=== PATIENT | female | born 1945 | race Caucasian/White ===

== ENCOUNTER 2020-08-22 17:52 | Emergency (ER) | payer MEDICARE ==
[~2020-08-22] VITALS: Ht 154.9 cm; Wt 86.8 kg
[2020-08-22 17:57] VITALS: BP 149/62
--- NOTE | 2020-08-22 18:10 | NUR ---
Jyoti rojas in [facility] - 08/22/20 at 1848 by IZAIAH PATIENT AMBULATED TO BED
--- NOTE | 2020-08-22 18:10 | NUR ---
PATIENT FAZAL ALS TO ER BED 06
--- NOTE | 2020-08-22 18:16 | NUR ---
75 Y/O BIBA FROM HOME FOR SUDDEN ONSET OF CHEST PAIN THAT BEGAN ABOUT 1 HOUR AGO. PATIENT TOOK 325MG CHEWABLE ASA AND FEELS LIKE IT HAS DECREASED PAIN. INITIAL PAIN WAS 8/10 CHEST PAIN AND DECREASED TO 2/10, RADIATING TO BACK. AAOX4. PT STATES SHE HAS HX OF ARRYTHMIA. VSS.
[2020-08-22 18:19] LABS: BASOPHILS # (AUTO) 0.1 K/uL (0.00-0.22); BASOPHILS % (AUTO) 0.9 % (0.0-2.0); EOSINOPHILS # (AUTO) 0.2 K/uL (0-0.4); EOSINOPHILS % (AUTO) 2.6 % (0.0-4.0); HEMATOCRIT 39.5 % (36-48); HEMOGLOBIN 12.9 g/dL (12.0-16.0); LYMPHOCYTES # (AUTO) 1.7 K/uL (2.5-16.5); LYMPHOCYTES % (AUTO) 24.6 % (20.5-51.1); MEAN CORPUSCULAR HEMOGLOBIN 29 pg (27-31); MEAN CORPUSCULAR HGB CONC 33 g/dL (33-37); MEAN CORPUSCULAR VOLUME 87.7 fL (80-94); MONOCYTES # (AUTO) 0.6 K/uL (0.8-1.0); MONOCYTES % (AUTO) 8.8 % (1.7-9.3); NEUTROPHILS # (AUTO) 4.4 K/uL (1.8-7.7); NEUTROPHILS % (AUTO) 63.1 % (42.2-75.2); PLATELET COUNT (AUTO) 243 K/uL (140-450); RED CELL DISTRIBUTION WIDTH 14.4 % (11.6-13.7)
--- NOTE | 2020-08-22 18:27 | NUR ---
XRAY AT BEDSIDE
[2020-08-22 18:57] LABS: ANION GAP 15.7 (8-16); CARBON DIOXIDE 26.5 mmol/L (21-32); CHLORIDE 102 mmol/L (98-107); CREATININE 1.3 mg/dL (0.6-1.3); GLUCOSE 158 mg/dL (74-106); POTASSIUM 4.2 mmol/L (3.5-5.1); SODIUM SERUM 140 mmol/L (136-145); UREA NITROGEN, BLOOD 17 mg/dL (7-18)
[2020-08-22 19:03] LABS: ALBUMIN 3.3 g/dL (3.4-5.0); ASPARTATE AMINOTRANSFERASE 27 U/L (15-37); LIPASE 165 U/L (73-393); TOTAL BILIRUBIN 0.4 mg/dL (0.0-1.0)
--- NOTE | 2020-08-22 19:11 | NUR ---
Report from Kevin MCKINNON
[2020-08-22 19:22] VITALS: BP 133/60
--- NOTE | 2020-08-22 19:23 | NUR ---
Patient discharged with v/s stable. Written and verbal after care instructions given and explained. Patient verbalized understanding. Ambulatory with steady gait. All questions addressed prior to discharge. Advised to follow up with PMD.
== END 2020-08-22 19:23 | disposition home or self-care (01) ==
LOC: MED 17:52
DX: R07.9 Chest pain, unspecified (principal); E11.9 Type 2 diabetes mellitus without complications; I10 Essential (primary) hypertension; E07.9 Disorder of thyroid, unspecified
CPT/HCPCS: 36415; 71045; 80053; 83690; 84484; 85025; 93005; 99285; Q0092

== ENCOUNTER 2022-04-29 19:12 | Emergency (ER) | payer MEDICARE ==
[~2022-04-29] VITALS: Ht 160 cm; Wt 80.7 kg
--- NOTE | 2022-04-29 19:14 | NUR ---
BIBA TAKEN TO BED #5
[2022-04-29 19:16] VITALS: BP 143/76
--- NOTE | 2022-04-29 19:20 | NUR ---
76 YO F BIBA FROM HOME WITH C/C OF 3/10 NONRAD STERNAL/EPIGAST CHEST PAIN [id number]. PT TOOK 3 BABY ASA BEFORE CALLING EMS, STATES PAIN WAS 7/10, DECREASED TO 3/10 AFTER ASA. DENIES SOB, N/V AND DIZZINESS. HX:BREAST CANCER- BILAT MASECTOMY, HTN, DM AND HYPOTHYRIOD ALLERGY:PCN AND TETRACYCLINE
--- NOTE | 2022-04-29 19:23 | NUR ---
LAB AT BEDSIDE.
[2022-04-29 19:28] LABS: BASOPHILS # (AUTO) 0.1 K/uL (0.00-0.22); BASOPHILS % (AUTO) 0.8 % (0.0-2.0); EOSINOPHILS # (AUTO) 0.2 K/uL (0-0.4); EOSINOPHILS % (AUTO) 2.3 % (0.0-4.0); HEMATOCRIT 40.8 % (36-48); HEMOGLOBIN 13.6 g/dL (12.0-16.0); LYMPHOCYTES % (AUTO) 26.2 % (20.5-51.1); MEAN CORPUSCULAR HEMOGLOBIN 29 pg (27-31); MEAN CORPUSCULAR HGB CONC 33 g/dL (33-37); MEAN CORPUSCULAR VOLUME 86.4 fL (80-94); MONOCYTES # (AUTO) 0.8 K/uL (0.8-1.0); MONOCYTES % (AUTO) 9.9 % (1.7-9.3); NEUTROPHILS # (AUTO) 4.6 K/uL (1.8-7.7); NEUTROPHILS % (AUTO) 60.8 % (42.2-75.2); PLATELET COUNT (AUTO) 225 K/uL (140-450); RED BLOOD CELL COUNT(AUTO) 4.72 MIL/uL (4.20-5.40); RED CELL DISTRIBUTION WIDTH 14.3 % (11.6-13.7); WHITE BLOOD COUNT (AUTO) 7.6 K/uL (4.8-10.8)
[2022-04-29 19:45] LABS: ALBUMIN 3.2 g/dL (3.4-5.0); ANION GAP 12.9 (8-16); ASPARTATE AMINOTRANSFERASE 18 U/L (15-37); CARBON DIOXIDE 24.9 mmol/L (21-32); CHLORIDE 101 mmol/L (98-107); GLUCOSE 188 mg/dL (74-106); POTASSIUM 3.8 mmol/L (3.5-5.1); SODIUM SERUM 135 mmol/L (136-145); TOTAL BILIRUBIN 0.4 mg/dL (0.0-1.0); UREA NITROGEN, BLOOD 18 mg/dL (7-18)
--- NOTE | 2022-04-29 19:54 | NUR ---
RAD AT BEDSIDE.
--- NOTE | 2022-04-29 20:08 | NUR ---
EVIE LIU AT BEDSIDE.
--- NOTE | 2022-04-29 20:14 | NUR ---
SHAYNE COLLECTED AND TAKEN TO LAB.
--- NOTE | 2022-04-29 20:57 | NUR ---
PT AMBULATED TO RR AND BACK TO BED
--- NOTE | 2022-04-29 21:44 | NUR ---
PT IS AWAKE AND ALERT. ALL NEEDS MET AT THIS TIME. PT ON SOLE SEAMER, SIDE RAILS X2 FOR SAFETY, BED LOCKED IN LOWEST POSITION.
[2022-04-29 21:56] VITALS: BP 139/71
--- NOTE | 2022-04-29 21:56 | NUR ---
Patient does not wish to proceed with medical care recommended by . Patient given information related to possible complications, up to and including , which could occur as a result of leaving hospital at this time. Patient verbalizes understanding of risks involved leaving against medical advice. Patient has signed AMA form.
== END 2022-04-29 21:56 | disposition home or self-care (01) ==
LOC: MED 19:12
DX: R07.9 Chest pain, unspecified (principal); Z20.822 Contact with and (suspected) exposure to COVID-19; E11.9 Type 2 diabetes mellitus without complications; I10 Essential (primary) hypertension; Z86.39 Personal history of other endocrine, nutritional and metabolic disease; Z90.49 Acquired absence of other specified parts of digestive tract; Z98.890 Other specified postprocedural states; Z88.0 Allergy status to penicillin; Z88.1 Allergy status to other antibiotic agents
CPT/HCPCS: 36415; 71045; 80053; 83880; 84484; 85025; 87426; 93005; 99285; Q0092